=== PATIENT | male | born 2000 | race Caucasian/White ===

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

== ENCOUNTER 2024-01-01 20:30 | Emergency (ER) | payer MEDICAID, SELFPAY ==
[2024-01-01 20:34] VITALS: BP 117/77; PULSE 68; RESP 18; TEMP 36.7; O2SAT 99; BMI 18.1
--- NOTE | 2024-01-01 20:49 | ED_ITS ---
HPI - Abdominal Pain 2 General: Chief Complaint: Abdominal Pain Stated Complaint: n/v fever stomach cramps Time Seen by Provider: 01/01/24 20:35 Source: patient Mode of arrival: ambulatory Limitations: no limitations History of Present Illness: 23-year-old male states been having vomi ting over the last 2 days. He states he had multiple episodes of vomiting has not been able to tolerate any liquids or solids. He has had some abdominal cramping denies any severe pains. Denies fever denies diarrhea he denies any worse improved factors Associated Symptoms: Reports nausea and vomiting; Denies chills, diarrhea, dysuria and fever(s) Review of Systems 2 Const: Denies: fever(s), chills, body aches or change in appetite Eyes: Denies: blurry vision or eye discomfort ENMT: Denies: throat pain or dental pain Card: Denies: chest pain Resp: Denies: dyspnea GI: Reports: abdominal pain, nausea and vomiting; Denies: diarrhea : Denies: dysuria Musc: Denies: neck pain or back pain Skin/Breast: Denies: rash Neuro: Denies: headache(s) PFSH ED 2 PFSH: Family History Other Diabetes Social History Smoking and tobacco/nicotine status: never used tobacco/nicotine Second hand smoke exposure: No Alcohol intake: never Substance/Drug Use: never Adopted: No Caregiver/support person: No Lives independently: Yes Household members: family Housing: House Marital status: Single Number of children: 0 Highest education level completed: 10th Grade 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 Do you think of yourself as: Straight/Heterosexual Current gender identity: Male Physical Exam 2 Const: COMMON NORMALS: no acute distress, patient oriented x3 and healthy appearing HENMT: COMMON NORMALS: normocephalic and atraumatic HEAD & SCALP: n ormocephalic and atraumatic Eye: COMMON NORMALS: Equal, round and reactive pupils present and EOMs intact bilaterally PUPIL: Yes Equal, round and reactive pupils present Neck/C-Spine: COMMON NORMALS: full ROM and supple Chest: COMMONS NORMALS: normal inspection of the chest and normal palpation of entire chest wall Resp: COMMON NORMALS: normal respiratory effort, No retractions, No use of accessory muscles and clear to auscultation bilaterally AUSCULTATION: clear to auscultation bilaterally Cardio: COMMON NORMALS: regular rate, regular rhythm and No murmurs present (Cardio) RATE: regular rate RHYTHM: regular rhythm GI: COMMON NORMALS: Normal to inspection, nondistended, normoactive bowel sounds present, Soft to palpation, non-tender and no masses PALPATION: Yes Soft to palpation Extremity: COMMON NORMALS: normal to inspection and full ROM Neuro: COMMON NORMALS: patient oriented x3, moves all extremities and no focal motor deficits Psych: COMMON NORMALS: mental status grossly normal, Normal thought process present and cooperative THOUGHT PROCESS: Normal thought process present Skin: COMMON NORMALS: no rashes or lesions noted and no wounds GENERAL SKIN EXAM: no rashes or lesions noted Course 2 Vital Signs: Vital signs: Vital Signs Temperature 98.1 F 01/01/24 20:34 Pulse Rate 68 01/01/24 20:34 Respiratory Rate 18 01/01/24 20:34 Blood Pressure 117/77 01/01/24 20:34 Pulse Oximetry 99 01/01/24 20:34 Oxygen Delivery Me thod Room Air 01/01/24 20:34 MDM - Abdominal Pain Medical Decision Making Patient presents here with vomiting blood work here is normal abdominal exam is benign he has no signs of acute surgical abdomen does not require any CT imaging he feels improved here after nausea medicine he was able to tolerate p.o. will prescribe Zofran for home he is follow-up with PCP and return if worsening he understands agrees to plan Medical Records I reviewed the patient's medical records. Lab Data I reviewed the patient's lab results. 01/01/24 21:06 01/01/24 21:06 Labs/Radiology: Laboratory Results WBC 4.76 10^3/uL (3.29-11.43) 01/01/24 21:06 RBC 4.59 10^6/uL (3.85-5.65) 01/01/24 21:06 Hgb 13.90 g/dL (11.27-16.99) 01/01/24 21:06 Hct 40.4 % (37-53) 01/01/24 21:06 MCV 88.0 fl (82-101) 01/01/24 21:06 MCH 30.3 pg (27-33) 01/01/24 21:06 MCHC 34.4 g/dL (30-55) 01/01/24 21:06 RDW 12.1 % (12.1-15.1) 01/01/24 21:06 Plt Count 171 10^3/cmm (157-399) 01/01/24 21:06 MPV 10.9 fL (7.4-10.4) H 01/01/24 21:06 Neut % (Auto) 66.0 % 01/01/24 21:06 Lymph % (Auto) 19.5 % 01/01/24 21:06 Cache % (Auto) 13.7 % 01/01/24 21:06 Eos % (Auto) 0.4 % 01/01/24 21:06 Baso % (Auto) 0.4 % 01/01/24 21:06 Neut # (Auto) 3.14 10^3/uL (1.8-7.7) 01/01/24 21:06 Lymph # (Auto) 0.9 10^3/uL (0.8-4.8) 01/01/24 21:06 Cache # (Auto) 0.7 10^3/uL (0.2-0.9) 01/01/24 21:06 Eos # (Auto) 0.0 10^3/uL (0.0-0.8) 01/01/24 21:06 Baso # (Auto) 0.0 10^3/uL (0.0-0.1) 01/01/24 21:06 Nucleated RBC % (auto) 0 % 01/01/24 21:06 Nucleated RBCs # 0.0 /100WBC 01/01/24 21:06 Sodium 137 mmol/L (136-145) 01/01/24 21:06 Potassium 3.6 mmol/L (3.5-5.1) 01/01/24 21:06 Chloride 102 mmol/L (98-107) 01/01/24 21:06 Carbon Dioxide 22 mmol/L (22-29) 01/01/24 21:06 Anion Gap 16.6 (5-19) 01/01/24 21:06 BUN 11 mg/dL (6-20) 01/01/24 21:06 Creatinine 1.0 mg/dL (0.7-1.2) 01/01/24 21:06 GFR Calculation 94.3 mL/min (90-130) 01/01/24 21:06 Glucose 85 mg/dL (65-115) 01/01/24 21:06 Calculated Osmolality 283 mOsm/kg (285-295) L 01/01/24 21:06 Calcium 9.3 mg/dL (8.5-10.5) 01/01/24 21:06 Total Bilirubin 0.8 mg/dL (0.15-1.2) 01/01/24 21:06 AST 19 U/L (0-40) 01/01/24 21:06 ALT 12 U/L (0-41) 01/01/24 21:06 Alkaline Phosphatase 62 U/L (40-130) 01/01/24 21:06 Total Protein 7.4 g/dL (6.6-8.7) 01/01/24 21:06 Albumin 4.4 g/dL (3.5-5.2) 01/01/24 21:06 Globulin 3.0 g/dL (1.3-4.6) 01/01/24 21:06 Lipase 18 U/L (13-60) 01/01/24 21:06 Urine Color Yellow (Yellow) 01/01/24 22:19 Urine Appearance Clear (CLEAR) 01/01/24 22:19 Urine pH 8 (5-7) H 01/01/24 22:19 Ur Specific [place] 1.015 (1.005-1.030) 01/01/24 22:19 Urine Protein Neg (Negative) 01/01/24 22:19 Urine Glucose (UA) Norm (Normal) 01/01/24 22:19 Urine Ketones 2+ (Negative) H 01/01/24 22:19 Urine Blood Neg (Negative) 01/01/24 22:19 Urine Nitrate Negative (Negative) 01/01/24 22:19 Urine Bilirubin Neg (Negative) 01/01/24 22:19 Prot Sulfosalicylic Acd Negative (Negative) 01/01/24 22:19 Urine Urobilinogen 4 mg/dL (Negative) H 01/01/24 22:19 Ur Leukocyte Esterase Negative (Negative) 01/01/24 22:19 No radiology studies performed this visit Discharge Plan Discharge Patient Disposition: Home Clinical Impression: Vomiting Condition: Stable Prescriptions: New ondansetron 4 mg tablet,disintegrating 4 mg PO Q6H PRN (Reason: nausea and vomiting) Qty: 14 0RF No Action sertraline [Zoloft] 25 mg tablet 25 mg PO DAILY 30 Days Qty: 30 6RF ALLERGY MED as directed cetirizine 10 mg tablet 10 mg PO DAILY Qty: 30 0RF fluticasone propionate [Flonase Allergy Relief] 50 mcg/actuation spray,suspension 2 spray intranasal DAILY Qty: 16 0RF Rx Instructions: administer into each nostril Discharge Orders: Discharge ED (Routine); Ordered 01/01/24 Ordered By: Rafy Mckeon Discharge Diet: Advance as tolerated Discharge Activity: Resume usual activity Patient Instructions: Acute Nausea and Vomiting (ED) Coding Level of Care Code ED Substance Abuse Prevention Coordinator for Lui Yoder
[2024-01-01] MEDS: sodium chloride 0.9% 1,000 ML 999 ML IV ×2 (21:09→21:53)
[2024-01-01] MEDS: diphenhydrAMINE 50 mg/mL SDV 1mL IVP (21:12)
[2024-01-01] MEDS: metoclopramide 5 mg/mL SDV 2 mL 10 MG IVP (21:12)
[2024-01-01 21:14] LABS: Basophils % 0.4 %; Eosinophils % 0.4 %; Hematocrit 40.4 % (37-53); Lymphocytes # 0.9 10^3/uL (0.8-4.8); Lymphocytes % 19.5 %; Mean Corpuscular HGB Conc 34.4 g/dL (30-55); Mean Corpuscular Hemoglobin 30.3 pg (27-33); Mean Platelet Volume 10.9 fL (7.4-10.4); Monocytes # 0.7 10^3/uL (0.2-0.9); Monocytes % 13.7 %; Neutrophils # 3.14 10^3/uL (1.8-7.7); Nucleated Red Blood Cells % 0 %; Platelet Count 171 10^3/cmm (157-399); Red Blood Count 4.59 10^6/uL (3.85-5.65); Red Cell Distribution Width 12.1 % (12.1-15.1); White Blood Count 4.76 10^3/uL (3.29-11.43)
[2024-01-01 21:29] LABS: Alanine Aminotransferase 12 U/L (0-41); Albumin Level 4.4 g/dL (3.5-5.2); Alkaline Phosphatase 62 U/L (40-130); Anion Gap 16.6 (5-19); Aspartate Amino Transferase 19 U/L (0-40); Blood Urea Nitrogen 11 mg/dL (6-20); Calcium 9.3 mg/dL (8.5-10.5); Carbon Dioxide 22 mmol/L (22-29); Chloride 102 mmol/L (98-107); Creatinine Clr Calc Pharmacy 97.1602; Glomerular Filtration Rate 94.3 mL/min (90-130); Glucose 85 mg/dL (65-115); Lipase 18 U/L (13-60); Osmolality Calculated 283 mOsm/kg (285-295); Potassium 3.6 mmol/L (3.5-5.1); Sodium 137 mmol/L (136-145); Total Bilirubin 0.8 mg/dL (0.15-1.2); Total Protein 7.4 g/dL (6.6-8.7)
[2024-01-01 22:28] LABS: Add Urine Microscopic? NO; Charge for UA Resulting for Rev
[2024-01-01 22:34] LABS: Bilirubin Urine Neg (Negative); Blood Urine Neg (Negative); Glucose Urine UA Norm (Normal); Ketones Urine 2+ (Negative); Leukocyte Esterase Urine Negative (Negative); Nitrate Urine Negative (Negative); Protein Urine Neg (Negative); Specific Gravity, Urine 1.015 (1.005-1.030); Sulfosalicylic Acid Urine Negative (Negative); Urine Appearance Clear (CLEAR); Urine Color Yellow (Yellow); Urobilinogen Urine 4 mg/dL (Negative); pH Urine 8 (5-7)
[2024-01-01 23:34] VITALS: BP 119/69; PULSE 93; O2SAT 99
== END 2024-01-01 23:34 | disposition home or self-care (01) ==
PROVIDERS: Emergency Provider Emergency Medicine
DX: R11.11 Vomiting without nausea (principal)
CPT/HCPCS: 80053; 81003; 83690; 85025; 96361; 96374; 96375; 99284; J1200; J2765; J7030

== ENCOUNTER 2024-11-05 19:40 | Emergency (ER) | payer SELFPAY ==
[2024-11-05 19:44] VITALS: BP 139/88; PULSE 65; RESP 14; TEMP 36.6; O2SAT 100
--- NOTE | 2024-11-05 20:33 | CTR_ITS ---
PROCEDURE INFORMATION: Exam: CT Head Without Contrast Exam date and time: 11/05/2024 9:52 PM Age: 24 years old Clinical indication: Injury or trauma; Blunt trauma (contusions or hematomas); Patient accidentally ran into a metal pole while running and struck face. Contusion with swelling and laceration to left orbit. ; Additional info: Head trauma positive loc TECHNIQUE: Imaging protocol: Computed tomography of the head without contrast. Radiation optimization: All CT scans at this facility use at least one of these dose optimization techniques: automated exposure control; mA and/or kV adjustment per patient size (includes targeted exams where dose is matched to clinical indication); or iterative reconstruction. COMPARISON: No relevant prior studies available. RADIATION DOSE METRICS: Total DLP (mGy-cm): 1039.83 FINDINGS: Brain: Normal. No hemorrhage. Unremarkable white matter. No mass effect. Cerebral ventricles: No ventriculomegaly. Paranasal sinuses: Visualized sinuses are unremarkable. No fluid levels. Mastoid air cells: Visualized mastoid air cells are well aerated. Bones: Unremarkable. No acute fracture. Soft tissues: Unremarkable. CT/CT head wo con* [id number] IMPRESSION: No acute intracranial abnormality.
--- NOTE | 2024-11-05 20:53 | CTR_ITS ---
PROCEDURE INFORMATION: Exam: CT Orbits Without Contrast Exam date and time: 11/05/2024 9:54 PM Age: 24 years old Clinical indication: Injury or trauma; Blunt trauma (contusions or hematomas); Orbit/periorbital; Patient accidentally ran into a metal pole while running and struck face. Contusion with swelling and laceration to left orbit. ; Additional info: L orbital inj TECHNIQUE: Imaging protocol: Computed tomography of the orbits without contrast. Radiation optimization: All CT scans at this facility use at least one of these dose optimization techniques: automated exposure control; mA and/or kV adjustment per patient size (includes targeted exams where dose is matched to clinical indication); or iterative reconstruction. COMPARISON: CT head wo con* [id number] 11/05/2024 9:52 PM RADIATION DOSE METRICS: Total DLP (mGy-cm): 316.31 FINDINGS: Paranasal sinuses: Normal. No air-fluid levels. Orbital cavities: Orbits are normal. Globes are unremarkable. Bones/joints: Right lateral nasal bone minimal cortical irregularity, series 3, image 6 may reflect a subtle fracture. Soft tissues: Left periorbital subcutaneous edema. CT/CT orbit BI wo con* [id number] IMPRESSION: 1. Right lateral nasal bone minimal cortical irregularity, series 3, image 6 may reflect a subtle fracture. 2. Left periorbital subcutaneous edema.
[2024-11-05 20:59] VITALS: BP 112/67; PULSE 70; RESP 17; O2SAT 99
--- NOTE | 2024-11-05 21:55 | W.ED.WOUNDLC ---
Documented by User: JOAO Gardner 11/05/24 21:57 HPI - Wound/Laceration General: Chief Complaint: Wound/Laceration Stated Complaint: facial lac and knot Time Seen by Provider: 11/05/24 20:39 Related Data Home Medications ?Medication ?Instructions ?Recorded ?Confirmed cetirizine 10 mg tablet 10 mg PO DAILY PRN Allergy Symptoms 04/25/24 04/25/24 Previous Rx's ?Medication ?Instructions ?Recorded ondansetron 4 mg disintegrating 4 mg PO Q6H PRN nausea and 01/01/24 tablet vomiting #14 tabs Allergies Allergy/AdvReac Type Severity Reaction Status Date / Time No Known Allergies Allergy Verified 11/05/24 19:49 PFSH ED PFSH: Family History Other Diabetes Social History Smoking and tobacco/nicotine status: never used tobacco/nicotine Second hand smoke exposure: No Alcohol intake: never Substance/Drug Use: never Adopted: No Caregiver/support person: No Lives independently: Yes Household members: family Housing: House Marital status: Single Number of children: 0 Highest education level completed: 10th Grade 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 Do you think of yourself as: Straight/Heterosexual Current gender identity: Male Procedures Laceration Laceration 1: Site: face (eyebrow) Side (If applicable): left Size (cm): 0.75 Description: linear Depth: simple, single layer Local Anesthetic: lidocaine 1% and with epi Amount of anesthesia used (mL): 1.0 Pre-repair: wound explored and irrigated extensively Skin layer closed with: other (Prolene) Size (cm): 5-0 Number of sutures: 3 Technique: running Laceration 2: Site: face (cheek) Side (If applicable): left Size (cm): 1.5 Description: linear Depth: simple, single layer Local Anesthetic: lidocaine 1% and with epi Amount of anesthesia used (mL): 1.5 Pre-repair: wound explored and irrigated extensively Skin layer closed with: nylon Size (cm): 5-0 Number of sutures: 4 Technique: simple, interrupted Course ED course: I was consulted by Dr. Tolbert to repair patient's facial lacerations. Wounds were copiously irrigated and repaired as documented. Other than laceration repair, I did not actively participate in any portion of patient's care. ES Vital Signs: Vital signs: Vital Signs Temperature 97.8 F 11/05/24 19:44 Pulse Rate 70 11/05/24 20:59 Respiratory Rate 17 11/05/24 20:59 Blood Pressure 112/67 11/05/24 20:59 Pulse Oximetry 99 11/05/24 20:59 Oxygen Delivery Me thod Room Air 11/05/24 20:59 MDM - Wound/Laceration Lab Data Radiology Impressions Head CT 11/05/24 20:33 IMPRESSION: No acute intracranial abnormality. Orbit CT 11/05/24 20:53 IMPRESSION: 1. Right lateral nasal bone minimal cortical irregularity, series 3, image 6 may reflect a subtle fracture. 2. Left periorbital subcutaneous edema. Discharge Plan Discharge Patient Disposition: Home Clinical Impression: Facial laceration, Periorbital contusion Condition: Stable Prescriptions: No Action ondansetron 4 mg tablet,disintegrating 4 mg PO Q6H PRN (Reason: nausea and vomiting) Qty: 14 0RF cetirizine 10 mg tablet 10 mg PO DAILY PRN (Reason: Allergy Symptoms) Discharge Orders: Discharge ED (Routine); Ordered 11/05/24 Ordered By: Graham Tolbert Referrals: Clotilde Clay MD [Primary Care Provider] - 7-10 days Patient Instructions: Facial Contusion (ED), Facial Laceration (ED), Opioid Safety, Pain Management Activity Restrictions/Additional Instructions: Sutures out in 5 to 7 days. You may wash with soap and water after 24 hours. Return for any problems. Call your doctor for follow-up and suture removal. Print Language: [place]an Coding Level of Care Code ED Boiler Assistant Operator for Chg Fwd Documented by User: Graham Tolbert DO 11/06/24 02:28 HPI - Wound/Laceration General: Chief Complaint: Wound/Laceration Stated Complaint: facial lac and knot Time Seen by Provider: 11/05/24 20:39 History of Present Illness: Mr. Saenz is a 24-year-old male who ran into a basketball goalpost while going for a ball this evening. He believes he may have been knocked out. His girlfriend states that he never really fell, but stumbled and was dazed for several seconds following. He sustained an injury to his left periorbital area. He has lacerations to his face. He has a headache. No neck pain. Related Data Home Medications ?Medication ?Instructions ?Recorded ?Confirmed cetirizine 10 mg tablet 10 mg PO DAILY PRN Allergy Symptoms 04/25/24 04/25/24 Previous Rx's ?Medication ?Instructions ?Recorded ondansetron 4 mg disintegrating 4 mg PO Q6H PRN nausea and 01/01/24 tablet vomiting #14 tabs Allergies Allergy/AdvReac Type Severity Reaction Status Date / Time No Known Allergies Allergy Verified 11/05/24 19:49 PFSH ED PFSH: Family History Other Diabetes Social History Smoking and tobacco/nicotine status: never used tobacco/nicotine Second hand smoke exposure: No Alcohol intake: never Substance/Drug Use: never Adopted: No Caregiver/support person: No Lives independently: Yes Household members: family Housing: House Marital status: Single Number of children: 0 Highest education level completed: 10th Grade 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 Do you think of yourself as: Straight/Heterosexual Current gender identity: Male Physical Exam Const: COMMON NORMALS: no acute distress and no limitations GENERAL APPEARANCE: not ill appearing HENMT: FACE & SINUS: ecchymosis on the left periorbital, erythema, edema and laceration (Small left eyebrow, small left infraorbital) Eye: COMMON NORMALS: Equal, round and reactive pupils present, EOMs intact bilaterally and conjunctivae normal CONJUNCTIVA: Yes conjunctivae normal PUPIL: Yes Equal, round and reactive pupils present Neck/C-Spine: COMMON NORMALS: full ROM CERVICAL SPINE: No Cervical spine tenderness Chest: CHEST: Yes Symmetrical chest wall rise Resp: COMMON NORMALS: normal respiratory effort and No retractions Cardio: COMMON NORMALS: regular rate and regular rhythm RATE: regular rate RHYTHM: regular rhythm Skin: NARRATIVE SKIN EXAM: See above Course Vital Signs: Vital signs: Vital Signs Temperature 97.8 F 11/05/24 19:44 Pulse Rate 70 11/05/24 20:59 Respiratory Rate 17 11/05/24 20:59 Blood Pressure 112/67 11/05/24 20:59 Pulse Oximetry 99 11/05/24 20:59 Oxygen Delivery Me thod Room Air 11/05/24 20:59 MDM - Wound/Laceration Medical Decision Making CT of the head is negative. Orbital CT reveals a potential right lateral nasal bone subtle fracture, although the patient is nontender on the right at all. This is likely artifact. Sutures placed by physician human resources executive assistant. He is stable for discharge. Lab Data Radiology Impressions Head CT 11/05/24 20:33 IMPRESSION: No acute intracranial abnormality. Orbit CT 11/05/24 20:53 IMPRESSION: 1. Right lateral nasal bone minimal cortical irregularity, series 3, image 6 may reflect a subtle fracture. 2. Left periorbital subcutaneous edema. All radiology interpretation(s) finalized by discharge Discharge Plan Discharge Patient Disposition: Home Clinical Impression: Facial laceration, Periorbital contusion Condition: Stable Prescriptions: No Action ondansetron 4 mg tablet,disintegrating 4 mg PO Q6H PRN (Reason: nausea and vomiting) Qty: 14 0RF cetirizine 10 mg tablet 10 mg PO DAILY PRN (Reason: Allergy Symptoms) Discharge Orders: Discharge ED (Routine); Ordered 11/05/24 Ordered By: Graham Tolbert Referrals: Clotilde Clay MD [Primary Care Provider] - 7-10 days Patient Instructions: Facial Contusion (ED), Facial Laceration (ED), Opioid Safety, Pain Management Activity Restrictions/Additional Instructions: Sutures out in 5 to 7 days. You may wash with soap and water after 24 hours. Return for any problems. Call your doctor for follow-up and suture removal. Print Language: [place] Coding Level of Care Code ED Boiler Assistant Operator for Lui Yoder
[2024-11-05] MEDS: oxyCODONE-APAP 5-325 mg Tablet 2 TAB PO (23:32)
== END 2024-11-05 23:33 | disposition home or self-care (01) ==
PROVIDERS: Emergency Provider Emergency Medicine; PCP Family Medicine
DX: S01.81XA Laceration without foreign body of other part of head, initial encounter (principal); X58.XXXA Exposure to other specified factors, initial encounter; Y93.67 Activity, basketball
CPT/HCPCS: 12011; 70450; 70480; 99284; J9999